=== PATIENT | female | born 1965 | race Caucasian/White ===

== ENCOUNTER 2016-10-08 17:37 | Emergency (ER) | payer SELFPAY ==
[~2016-10-08] VITALS: Ht 167.6 cm; Wt 81.6 kg
[2016-10-08] MEDS ORDERED: NKM (17:44)
[2016-10-08] MEDS ORDERED: IBUPROFEN600 MG ORAL (18:38)
[2016-10-08 18:47] VITALS: BP 138/78
--- NOTE | 2016-10-08 20:17 | Emergency Room Report ---
History of Present Illness General Chief Complaint: Lower Extremity Injury Source: Patient Present Illness HPI The patient is a 50-year-old female presenting with left leg pain which began 2 days prior. She states that she dropped a ceiling fan onto the leg. Pain has continued and is now a 10 out of 10 dull ache. Does not radiate from the left leg it worse with walking and touch. she denies any numbness or tingling. She denies any other symptoms Allergies: Coded Allergies: No Known Allergies (Unverified , 10/08/16) Patient History Past Medical History: see triage record Pertinent Family History: none Last Menstrual Period: 6 months ago Now: No Reviewed Nursing Documentation: PMH: Agreed, PSxH: Agreed Nursing Documentation-PMH Past Medical History: No Stated History Review of Systems All Other Systems: negative except mentioned in HPI Physical Exam Vital Signs Date Time Temp Pulse Resp B/P (MAP) Pulse Ox O2 Delivery O2 Flow Rate FiO2 10/08/16 17:40 97.9 93 16 148/81 95 10/08/16 18:47 Room Air Sp02 EP Interpretation: reviewed, normal General Appearance: no apparent distress, alert, GCS 15, non-toxic Head: normocephalic, atraumatic Eyes: bilateral eye normal inspection, bilateral eye PERRL Musculoskeletal: normal range of motion, no calf tenderness, swelling - L distal leg, tender - TTP over the L distal tibia Neurologic: alert, oriented x3, responsive, motor strength/tone normal, sensory intact, speech normal Psychiatric: judgement/insight normal, memory normal, mood/affect normal, no suicidal/homicidal ideation Skin: normal color, no rash, warm/dry, well hydrated Medical Decision Making PA Attestation Dr. Badillo is my supervising physician. Patient management was discussed with my supervising physician Diagnostic Impression: Primary Impression: Contusion of leg, left Qualified Codes: S80.12XA - Contusion of left lower leg, initial encounter ER Course The patient is a 50-year-old female presenting with left leg pain Ddx considered include but not limited to sprain/strain, fracture, contusion Physical exam: No apparent distress There is tenderness to palpation over the left distal tibia. No obvious deformity. No ecchymosis. Full active range of motion of the ankle X-ray of the left tib/fib and left ankle are unremarkable The patient be discharged home with a prescription for Motrin. She will use RICE at home. ER precautions given Other X-Ray Diagnostic Results Other X-Ray Diagnostic Results #1: X-Ray ordered: L tib/fib # of Views/Limited Vs Complete: 2 View Indication: Pain EP Interpretation: Yes Interpretation: no dislocation, no soft tissue swelling, no fractures Impression: No acute disease Interpreting ER Provider: MD SHAYLA Martínez Scribe Text I am acting as scribe for my supervising physician. My supervising physician's interpretation of the L tib/fib xrays are there are no fractures, dislocations or soft tissue swelling. Other X-Ray Diagnostic Results #2: X-Ray ordered: L ankle # of Views/Limited Vs Complete: 3 View Indication: Pain EP Interpretation: Yes Interpretation: no dislocation, no soft tissue swelling, no fractures Impression: No acute disease Interpreting ER Provider: MD SHAYLA Martínez Scribe Text I am acting as scribe for my supervising physician. My supervising physician's interpretation of the L ankle xrays are there are no fractures, dislocations or soft tissue swelling. Last Vital Signs Date Time Temp Pulse Resp B/P (MAP) Pulse Ox O2 Delivery O2 Flow Rate FiO2 10/08/16 18:47 86 16 138/78 95 Room Air 10/08/16 17:40 97.9 Status: improved Disposition: HOME, SELF-CARE Condition: Improved Scripts Ibuprofen* (MOTRIN*) 600 Mg Tablet 600 MG ORAL Q8H Y for For Pain, #30 TAB 0 Refills Prov: EVA HUTCHISON 10/08/16 Referrals: NOT CHOSEN [facility]/,REFERRING (PCP) Patient Instructions: Foot Contusion Additional Instructions: I discussed my findings with the patient. All questions and concerns have been answered. Treatment and medication compliance have been addressed. I advised the patient that they need to follow up with PMD in 3-5 days. Return to ED if pain remains or worsens, numbness or tingling occurs, new rash is noticed, fever is noticed, or if needed for any reason. Patient verbalized understanding of discharge instructions. EVA HUTCHISON Oct 08, 2016 20:17
--- NOTE | 2016-10-09 09:45 | Diagnostic Imaging Report ---
Indication: PAIN Technique: 3 views of the left ankle Comparison: none Findings: There is a small plantar spur. No acute fractures. No dislocations. Joint spaces are preserved Impression: No acute process
--- NOTE | 2016-10-09 09:45 | Diagnostic Imaging Report ---
Indication: PAIN, trauma, ceiling fan fell on like Technique: 2 views of the left tibia and fibula Comparison: none Findings: No acute fractures. No dislocations. Joint spaces are preserved. No radiopaque foreign body. Impression: Negative
== END 2016-10-08 18:47 | disposition home or self-care (01) ==
LOC: EMR 18:40
DX: S80.12XA Contusion of left lower leg, initial encounter (principal); W20.8XXA Other cause of strike by thrown, projected or falling object, initial encounter; Y92.9 Unspecified place or not applicable; M77.52 Other enthesopathy of left foot and ankle
CPT/HCPCS: 99284